=== PATIENT | female | born 1990 | race Native Hawaiian/Other Pacific Islander ===

== ENCOUNTER 2017-11-18 09:38 | Emergency (ER) | payer OTHER ==
[~2017-11-18] VITALS: Ht 167.6 cm; Wt 69.4 kg
[2017-11-18] MEDS ORDERED: PARO20TA3 PO (09:55)
[2017-11-18 10:51] LABS: PLATELET COUNT 234 K/uL (152-353)
[2017-11-18 11:04] LABS: POTASSIUM 4.1 mmol/L (3.6-5.2)
[2017-11-18 11:29] LABS: PARTIAL THROMBOPLASTIN TIME 29.3 SECONDS (24.5-33.6)
[2017-11-18 11:39] VITALS: BP 112/66; TEMP 98.1
== END 2017-11-18 11:58 | disposition home or self-care (01) ==
LOC: ED 09:38
DX: K21.9 Gastro-esophageal reflux disease without esophagitis (principal); R07.89 Other chest pain; M94.0 Chondrocostal junction syndrome [Tietze]
CPT/HCPCS: 36415; 80053; 82550; 84484; 85027; 85610; 85730; 93005; 99284; J1885

== ENCOUNTER 2018-01-05 13:30 | Outpatient (CLI) | payer OTHER ==
[~2018-01-05 13:30] MED LIST: PARO20TA3 PO
== END 2018-01-05 22:05 | disposition home or self-care (01) ==
LOC: LABW 13:30
DX: R00.2 Palpitations (principal)
CPT/HCPCS: 36415; 84436; 84443; 84479

== ENCOUNTER 2018-05-04 16:00 | Outpatient (CLI) | payer OTHER | END 2018-05-04 19:51 | disposition home or self-care (01) | LOC: INF 16:00 | DX: N30.00 Acute cystitis without hematuria (principal) | CPT/HCPCS: 96361; 96365; J0696 ==

== ENCOUNTER 2018-05-05 19:33 | Outpatient (CLI) | payer OTHER | END 2018-05-05 20:37 | disposition home or self-care (01) | LOC: INF 19:33 | DX: N30.00 Acute cystitis without hematuria (principal) | CPT/HCPCS: 96372; J0696 ==

== ENCOUNTER 2018-05-06 19:09 | Outpatient (CLI) | payer OTHER | END 2018-05-06 19:28 | disposition home or self-care (01) | LOC: INF 19:09 | DX: N30.00 Acute cystitis without hematuria (principal) | CPT/HCPCS: 96372; J0696 ==

== ENCOUNTER 2018-05-07 20:02 | Outpatient (CLI) | payer OTHER | END 2018-05-07 22:56 | disposition home or self-care (01) | LOC: INF 20:02 | DX: N30.00 Acute cystitis without hematuria (principal) | CPT/HCPCS: 96372; J0696 ==

== ENCOUNTER 2018-08-25 14:43 | Emergency (ER) | payer OTHER ==
[~2018-08-25] VITALS: Ht 167.6 cm; Wt 77.1 kg
[2018-08-25] MEDS ORDERED: ONDA4TAB3 PO (14:59)
[2018-08-25] MEDS ORDERED: HYDR5TAB9 PO (15:01)
[2018-08-25] MEDS ORDERED: CLAR250T2 PO (15:03)
[2018-08-25] MEDS ORDERED: METOCLOPRAM10 MG (15:05)
[2018-08-25] MEDS ORDERED: PREVACID30 MG (15:06)
[2018-08-25] MEDS ORDERED: AMOX500T5 PO (15:11)
[2018-08-25 17:48] VITALS: BP 150/84; TEMP 98.9
== END 2018-08-25 17:48 | disposition home or self-care (01) ==
LOC: ED 14:43
DX: N80.9 Endometriosis, unspecified (principal); K82.9 Disease of gallbladder, unspecified; K21.9 Gastro-esophageal reflux disease without esophagitis
CPT/HCPCS: 99283

== ENCOUNTER 2018-09-25 12:01 | Emergency (ER) | payer OTHER ==
[~2018-09-25] VITALS: Ht 167.6 cm; Wt 80.7 kg
[~2018-09-25 12:01] MED LIST changes: +AMOX500T5 PO; +CLAR250T2 PO; +HYDR5TAB9 PO; +METOCLOPRAM10 MG; +ONDA4TAB3 PO; +PREVACID30 MG
[2018-09-25 13:35] LABS: POTASSIUM 4.3 mmol/L (3.6-5.2); SODIUM 139 mmol/L (136-145)
[2018-09-25 13:41] LABS: PLATELET COUNT 246 K/uL (152-353)
[2018-09-25 15:00] VITALS: BP 128/71; TEMP 97.7
== END 2018-09-25 15:00 | disposition home or self-care (01) ==
LOC: ED 12:01
PROVIDERS: Family Medicine
DX: M94.0 Chondrocostal junction syndrome [Tietze] (principal)
CPT/HCPCS: 36415; 80053; 81000; 82550; 84484; 85027; 85379; 93005; 96374; 99284; J1885

== ENCOUNTER 2019-03-11 02:19 | Emergency (ER) | payer OTHER ==
[~2019-03-11] VITALS: Ht 167.6 cm; Wt 86.6 kg
[2019-03-11 02:50] LABS: PLATELET COUNT 284 K/uL (152-353)
[2019-03-11 03:04] LABS: POTASSIUM 4.5 mmol/L (3.6-5.2); SODIUM 142 mmol/L (136-145)
[2019-03-11 03:48] LABS: PARTIAL THROMBOPLASTIN TIME 26.3 SECONDS (24.5-33.6)
[2019-03-11 04:10] VITALS: BP 120/70; TEMP 98.4
== END 2019-03-11 04:10 | disposition home or self-care (01) ==
LOC: ED 02:19
PROVIDERS: Hospitalist
DX: R07.89 Other chest pain (principal); K21.9 Gastro-esophageal reflux disease without esophagitis
CPT/HCPCS: 36415; 80053; 82550; 83880; 84484; 85027; 85379; 85610; 85730; 93005; 96374; 99284; J1885

== ENCOUNTER 2020-08-22 21:53 | Emergency (ER) | payer OTHER ==
[~2020-08-22] VITALS: Ht 167.6 cm; Wt 86.2 kg
[2020-08-22 23:25] VITALS: BP 123/67; TEMP 98.2
== END 2020-08-22 23:25 | disposition home or self-care (01) ==
LOC: ED 21:53
DX: J20.9 Acute bronchitis, unspecified (principal); R05 Cough; M62.830 Muscle spasm of back; Z79.2 Long term (current) use of antibiotics; F17.210 Nicotine dependence, cigarettes, uncomplicated
CPT/HCPCS: 96372; 99283; J1020